=== PATIENT | male | born 1960 | race Caucasian/White ===

== ENCOUNTER 2016-09-28 12:42 | Inpatient (IN) ==
[2016-09-28] MEDS ORDERED: Ondansetron 4 MG/2 ML VIAL IV ONE ×3 (13:18→16:12)
[2016-09-28] MEDS ORDERED: *HR* HYDROmorphone (PF) 1 MG/ML SYRINGE IV ONE ×3 (13:18→16:12)
--- NOTE | 2016-09-28 13:18 | Emergency Department Note ---
Disposition Clinical Impression: Biliary colic, Intractable abdominal pain Disposition: Admitted As Inpatient Referrals: Luther Starks MD [Primary Care Provider] - Forms: Work/School Release, ED Satisfaction Letter Abdominal Pain HPI - General Chief Complaint: ED Abdominal Pain Stated Complaint: Needs admitted Time Seen by Provider: 09/28/16 12:49 Source: patient, family Mode of arrival: ambulatory Limitations: no limitations Nursing Notes Reviewed: Yes Vital Signs Reviewed: Yes - History of Present Illness Pt Subjective Complaint: abdominal pain Onset (ago): week(s) (3) Consistency: intermittent, Worsening Location: RUQ Pain Severity: severe Pain Scale: 10 Quality: stabbing, sharp Radiation: none Migration to: no migration Improves with: nothing Worsens with: eating Associated symptoms: Reports: nausea, vomiting - Related Data Home Medications Medication Instructions Recorded Confirmed Alprazolam [Xanax] 2 mg PO TID PRN 09/28/16 09/28/16 Cyclobenzaprine [Flexeril] 10 mg PO TID PRN 09/28/16 09/28/16 Dicyclomine [Bentyl] 20 mg PO TID PRN 09/28/16 09/28/16 Ergocalciferol (VITAMIN D2) 50,000 unit PO QWEEK 09/28/16 09/28/16 [Vitamin D2] Lisinopril [Zestril] 40 mg PO DAILY 09/28/16 09/28/16 Metoprolol XL (24 HR) Succ [Toprol 50 mg PO DAILY 09/28/16 09/28/16 XL] Omeprazole [PriLOSEC] 20 mg PO BIDAC 09/28/16 09/28/16 Ondansetron ODT [Zofran ODT] 4 - 8 mg SL Q6H PRN 09/28/16 09/28/16 Oxycodone HCl/Acetaminophen 0.5 - 1 each PO TID PRN 09/28/16 09/28/16 [Percocet 10-325 mg Tablet] Zolpidem [Ambien] 10 mg PO HS PRN 09/28/16 09/28/16 Allergies Allergy/AdvReac Type Severity Reaction Status Date / Time Sulfa (Sulfonamide Allergy Vomiting Verified 01/11/16 00:54 Antibiotics) Gxqqrhh-[id number]-[id number] Reductase AdvReac Muscle Pain Verified 01/11/16 00:54 Inhibitor [Statins] All systems ED: reviewed and negative except as stated. Constitutional: Denies: fever, chills, weakness Cardiovascular: Denies: chest pain Gastrointestinal: Reports: nausea, vomiting Abdominal Pain PMH - Past Medical History Medical history: Reports: GERD, hyperlipidemia, hypertension, kidney stones Male Surgical History: Reports: ureteral stent, other Psychiatric history: Reports: anxiety - Social History Smoking status: Current every day smoker Alcohol use: Reports: none Drug use: Reports: none Physical Exam - General Limitations: no limitations General appearance: alert - Head Head exam: atraumatic, normocephalic, normal inspection - Eye Eye exam: Present: normal appearance, PERRL, EOMI - Expanded Eye Exam Pupils: Left: reactive - ENT ENT exam: normal exam, normal oropharynx, mucous membranes moist - Expanded ENT Exam External ear exam: Present: normal external inspection Mouth exam: Present: normal external inspection Teeth exam: Present: normal inspection Throat exam: Present: normal inspection - Neck Neck exam: Present: normal inspection, full ROM, trachea midline - Chest Chest inspection: Present: normal inspection, symmetric chest wall rise - Respiratory Respiratory exam: Present: normal lung sounds bilaterally - Cardiovascular Cardiovascular exam: Present: regular rate, normal rhythm, normal heart sounds - Abdominal Exam Abdominal exam: Present: guarding, normal bowel sounds Abdominal tenderness: Present: RUQ, severe - Extremities Exam Extremities exam: Present: normal inspection, full ROM. Absent: tenderness, pedal edema - Expanded Upper Extremity Exam Shoulder exam: Present: normal inspection, full ROM Arm exam: Present: normal inspection, full ROM Elbow exam: Present: normal inspection, full ROM Forearm/Wrist exam: Present: normal inspection, full ROM Hand exam: Present: normal inspection, full ROM Vascular exam: Normal: capillary refill, radial pulse - Expanded Lower Extremity Exam Hip/Pelvis exam: Present: normal inspection, full ROM Upper leg exam: Present: normal inspection, full ROM Knee exam: Present: normal inspection, full ROM Lower leg exam: Present: normal inspection, full ROM Ankle exam: Present: normal inspection, full ROM Foot/toe exam: Present: normal inspection, full ROM Neurovascular/Tendon exam: Absent: motor deficit, sensory deficit, tendon deficit - Back Exam Back exam: Present: normal inspection, full ROM. Absent: tenderness - Neurological Exam Neurological exam: Present: alert, oriented X3 - Expanded Neurological Exam Patient oriented to: Present: person, place, time Coma Scale Eye Opening: Spontaneous Coma Scale Motor Response: Obeys Commands Coma Scale Verbal Response: Oriented Coma Scale Total: 15 - Psychiatric Psychiatric exam: Present: normal affect, normal mood - Skin Skin exam: Present: warm, dry, intact, normal color Course - Consultations Consultation #1: dr. galvez consulted, Nataly Gouldgomery accepts under the hospitalist service Time: 16:39 Vital Signs Temperature 98.2 F 09/28/16 12:43 Pulse Rate 95 09/28/16 12:43 Respiratory Rate 18 09/28/16 12:43 Blood Pressure 173/122 09/28/16 12:43 O2 Sat by Pulse Oximetry 96 09/28/16 12:43 Temperature 98.2 F 09/28/16 12:45 Pulse Rate 68 09/28/16 14:33 Respiratory Rate 15 09/28/16 13:23 Blood Pressure 159/90 09/28/16 14:33 O2 Sat by Pulse Oximetry 96 09/28/16 14:33 Oxygen Delivery Oxygen Delivery Room Air Abdominal Pain - Differential Diagnosis Differential Diagnosis: Likely: abdominal pain non-specific, acute appendicitis , calculus of kidney, diverticulitis, gastroenteritis, pancreatitis, small bowel obstruction - Medical Records Medical records reviewed: Yes I reviewed the patient's medical records. - Lab Data Lab results reviewed: Yes I reviewed the patient's lab results. Result diagrams: 09/28/16 13:27 09/28/16 13:27 Lab Results 09/28/16 09/28/16 09/28/16 Range/Units 13:00 13:27 13:27 WBC 8.2 (4.3-11.1) K/mcL RBC 5.57 H (4.19-5.50) M/mcL Hgb 16.7 (12.9-16.9) g/dL Hct 48.6 (37.5-50.1) % MCV 87.3 (83.0-100.0) fL MCH 30.0 (28.0-33.3) pg MCHC 34.4 (31.6-35.5) g/dL RDW 12.2 (11.5-14.5) % Plt Count 200 (140-400) K/mcL MPV 9.8 (9.4-12.4) fL Immature Gran % 0.4 (0-4) % Seg Neutrophils % 69.9 % Lymphocytes % 22.3 % Monocytes % 6.2 % Eosinophils % 0.6 % Basophils % 0.6 % Neutrophils # 5.7 (1.6-8.9) K/mcL Lymphocytes # 1.8 (0.6-4.6) K/mcL Monocytes # 0.5 (0.0-1.3) K/mcL Eosinophils # 0.1 (0.0-0.6) K/mcL Basophils # 0.1 (0.0-0.2) K/mcL PT 12.5 H (9.4-12.1) Seconds INR 1.2 APTT 30.9 (26.0-36.0) Seconds Sodium (136-145) mEq/L Potassium (3.5-4.5) mEq/L Chloride (98-109) mEq/L Carbon Dioxide (19-29) mEq/L BUN (8-26) mg/dL Creatinine (0.72-1.25) mg/dL Est GFR ( Amer) (> 60) Est GFR (Non-Af Amer) (> 60) BUN/Creatinine Ratio (6-26) Glucose (70-99) mg/dL Calculated Osmolality (280-300) Calcium (8.6-10.8) mg/dL Total Bilirubin (0.2-1.2) mg/dL Direct Bilirubin (0.0-0.5) mg/dL Indirect Bilirubin (0.0-1.2) mg/dL AST (5-34) Units/L ALT (0-55) Units/L Alkaline Phosphatase (38-126) Units/L Troponin I (0-0.03) ng/mL Serum Total Protein (6.0-8.3) g/dL Albumin (3.5-5.0) g/dL Globulin (2.4-3.5) g/dL Albumin/Globulin Ratio (1.1-2.2) Amylase (25-125) Units/L Lipase (8-78) Units/L Urine Color Dark Yellow (Yellow) Urine Clarity Clear (Clear) Urine pH 6.0 (5.0-8.0) pH Units Ur Specific [place] > 1.030 H (1.010-1.025) Urine Protein Trace (Neg-Trace) mg/dL Urine Glucose (UA) Normal (Normal) mg/dL Urine Ketones 15 H (Negative) mg/dL Urine Blood Negative (Negative) Urine Nitrite Negative (Negative) Urine Bilirubin Small H (Negative) Urine Urobilinogen Normal (Normal) mg/dL Ur Leukocyte Esterase Negative (Negative) Urine Microscopic RBC 0-3 (0-3) per hpf Urine Microscopic WBC 3-5 H (0-3) per hpf Ur Squamous Epith Cells Moderate H (None-Few) per lpf Urine Bacteria None Seen (None-Few) per hpf Hyaline Casts None Seen (None-Few) per lpf Ur Culture Indicated? NO (NO) 09/28/16 09/28/16 Range/Units 13:27 13:27 WBC (4.3-11.1) K/mcL RBC (4.19-5.50) M/mcL Hgb (12.9-16.9) g/dL Hct (37.5-50.1) % MCV (83.0-100.0) fL MCH (28.0-33.3) pg MCHC (31.6-35.5) g/dL RDW (11.5-14.5) % Plt Count (140-400) K/mcL MPV (9.4-12.4) fL Immature Gran % (0-4) % Seg Neutrophils % % Lymphocytes % % Monocytes % % Eosinophils % % Basophils % % Neutrophils # (1.6-8.9) K/mcL Lymphocytes # (0.6-4.6) K/mcL Monocytes # (0.0-1.3) K/mcL Eosinophils # (0.0-0.6) K/mcL Basophils # (0.0-0.2) K/mcL PT (9.4-12.1) Seconds INR APTT (26.0-36.0) Seconds Sodium 138 (136-145) mEq/L Potassium 4.1 (3.5-4.5) mEq/L Chloride 108 (98-109) mEq/L Carbon Dioxide 21 (19-29) mEq/L BUN 14 (8-26) mg/dL Creatinine 0.94 (0.72-1.25) mg/dL Est GFR ( Amer) > 60 (> 60) Est GFR (Non-Af Amer) > 60 (> 60) BUN/Creatinine Ratio 15 (6-26) Glucose 140 H (70-99) mg/dL Calculated Osmolality 289 (280-300) Calcium 9.4 (8.6-10.8) mg/dL Total Bilirubin 0.7 (0.2-1.2) mg/dL Direct Bilirubin 0.3 (0.0-0.5) mg/dL Indirect Bilirubin 0.4 (0.0-1.2) mg/dL AST 26 (5-34) Units/L ALT 31 (0-55) Units/L Alkaline Phosphatase 61 (38-126) Units/L Troponin I 0.00 (0-0.03) ng/mL Serum Total Protein 7.7 (6.0-8.3) g/dL Albumin 4.2 (3.5-5.0) g/dL Globulin 3.5 (2.4-3.5) g/dL Albumin/Globulin Ratio 1.2 (1.1-2.2) Amylase 165 H (25-125) Units/L Lipase 20 (8-78) Units/L Urine Color (Yellow) Urine Clarity (Clear) Urine pH (5.0-8.0) pH Units Ur Specific [place] (1.010-1.025) Urine Protein (Neg-Trace) mg/dL Urine Glucose (UA) (Normal) mg/dL Urine Ketones (Negative) mg/dL Urine Blood (Negative) Urine Nitrite (Negative) Urine Bilirubin (Negative) Urine Urobilinogen (Normal) mg/dL Ur Leukocyte Esterase (Negative) Urine Microscopic RBC (0-3) per hpf Urine Microscopic WBC (0-3) per hpf Ur Squamous Epith Cells (None-Few) per lpf Urine Bacteria (None-Few) per hpf Hyaline Casts (None-Few) per lpf Ur Culture Indicated? (NO) - Radiology Data Radiology results reviewed: Yes I reviewed the patient's radiology results.
[2016-09-28] MEDS: 0.9 % Sodium Chloride 1,000 ML IVC SCH ×2 (13:33→14:30)
[2016-09-28 13:34] LABS: Basophils # 0.1 K/mcL (0.0-0.2); Basophils % 0.6 %; Eosinophils # 0.1 K/mcL (0.0-0.6); Eosinophils % 0.6 %; Hematocrit 48.6 % (37.5-50.1); Hemoglobin 16.7 g/dL (12.9-16.9); Immature Granulocytes % 0.4 % (0-4); Lymphocytes # 1.8 K/mcL (0.6-4.6); Lymphocytes % 22.3 %; Mean Corpuscular HGB Conc 34.4 g/dL (31.6-35.5); Mean Corpuscular Volume 87.3 fL (83.0-100.0); Mean Platelet Volume 9.8 fL (9.4-12.4); Monocytes # 0.5 K/mcL (0.0-1.3); Monocytes % 6.2 %; Neutrophils # 5.7 K/mcL (1.6-8.9); Platelet Count 200 K/mcL (140-400); Red Blood Count 5.57 M/mcL (4.19-5.50); Red Cell Distribution Width 12.2 % (11.5-14.5); Segmented Neutrophils % 69.9 %
[2016-09-28 13:39] LABS: INR 1.2; Prothrombin Time 12.5 Seconds (9.4-12.1)
[2016-09-28 13:39] LABS: Bilirubin,Urine Small (Negative); Blood,Urine Negative (Negative); Clarity,Urine Clear (Clear); Color,Urine Dark Yellow (Yellow); Glucose,Urine (UA) Normal (Normal); Ketones,Urine 15 mg/dL (Negative); Leukocyte Esterase,Urine Negative (Negative); Nitrite,Urine Negative (Negative); Protein,Urine Trace mg/dL (Neg-Trace); Specific Gravity,Urine > 1.030 (1.010-1.025); Urobilinogen,Urine Normal (Normal)
[2016-09-28 13:42] LABS: Activated Partial Thrombo Time 30.9 Seconds (26.0-36.0)
[2016-09-28 13:43] LABS: Bacteria,Urine None Seen per hpf (None-Few); Hyaline Casts,Urine None Seen per lpf (None-Few); RBC,Urine 0-3 per hpf (0-3); Squamous Epithelial Cell,Urine Moderate per lpf (None-Few)
[2016-09-28 13:50] LABS: Alanine Aminotransferase 31 Units/L (0-55); Albumin 4.2 g/dL (3.5-5.0); Albumin/Globulin Ratio 1.2 (1.1-2.2); Alkaline Phosphatase 61 Units/L (38-126); Amylase 165 Units/L (25-125); Aspartate Amino Transferase 26 Units/L (5-34); BUN/Creatinine Ratio 15 (6-26); Bilirubin,Direct 0.3 mg/dL (0.0-0.5); Bilirubin,Indirect 0.4 mg/dL (0.0-1.2); Bilirubin,Total 0.7 mg/dL (0.2-1.2); Blood Urea Nitrogen 14 mg/dL (8-26); Calcium 9.4 mg/dL (8.6-10.8); Carbon Dioxide 21 mEq/L (19-29); Chloride 108 mEq/L (98-109); Globulin 3.5 g/dL (2.4-3.5); Glucose 140 mg/dL (70-99); Lipase 20 Units/L (8-78); Osmolality,Calculated 289 (280-300); Potassium 4.1 mEq/L (3.5-4.5); Sodium 138 mEq/L (136-145); Total Protein 7.7 g/dL (6.0-8.3); eGFR For African Americans > 60 (> 60); eGFR For Non-African Americans > 60 (> 60)
[2016-09-28] MEDS ORDERED: *HR* Promethazine 25 MG/ML VIAL IVP ONE (16:33)
[2016-09-28] MEDS ORDERED: Ondansetron ODT 4 MG TAB.RAPDIS SL PRN (16:49)
[2016-09-28] MEDS ORDERED: Naloxone 0.4 MG/ML INJ IVP PRN (16:49)
[2016-09-28] MEDS ORDERED: *HR* HYDROmorphone (PF) 1 MG/ML SYRINGE IVP ONE (17:00)
[2016-09-28] MEDS ORDERED: ALPRAZolam 1 MG TABLET PO PRN (19:48)
--- NOTE | 2016-09-28 19:55 | Internal Med History&Physical ---
<Nataly Sargent - Last Filed: 09/28/16 19:53> Date of Encounter: 09/28/16 Time of Encounter: 19:53 Assessment and Plan (1) Biliary colic Current visit: Yes Status: Acute recurrent for 3 weeks prior to admission. Has had extensive work-up including negative HIDA scan. ED discussed case with General Surgery and plan for chloecystectomy in the morning. IV fluids, pain control (2) Hypertension Current visit: Yes Status: Acute per hx. BP elevated in ED. resume home BP medications. Monitor BP and titrate PRN Qualifiers: Qualified Code(s): I10 - Essential (primary) hypertension (3) DVT prophylaxis Current visit: Yes [facility] Medicine - H&P: HPI Chief complaint: abdomianl pain Admitted From: Home History of present illness: Mr. Rivera is a 55 year old male with PMH HTN and anxiety who presented to [facility] on 09/28/2016 with complaints of abdominal pain. ED discussed case with General Surgery and He was admitted for cholecystectomy in the morning. Information obtained from chart review and patient report. Patient reports intermittent ABD pain for the past 3 weeks. Has had extensive work-up including a negative HIDA scan. On my exam he is still with sharp, constant LUQ pain, rates 4/10, says IV dilaudid helped, nothing makes worse. No CP, no SOB Past Med Surg Social Fam HX - Past Medical History Medical history: GERD, hyperlipidemia, hypertension, kidney stones Psychiatric history: anxiety - Past Surgical History Surgical History: no surgical history, non-contributory - Social History Smoking Status: Current every day smoker Smokeless Tobacco Status: No Alcohol use: none Drug use: none - Additional Family History Additional family history: reviewed and non-contributory Internal Medicine - H&P: Meds Alprazolam [Xanax] 2 mg PO TID PRN 09/28/16 [History] Cyclobenzaprine [Flexeril] 10 mg PO TID PRN 09/28/16 [History] Dicyclomine [Bentyl] 20 mg PO TID PRN 09/28/16 [History] Ergocalciferol (VITAMIN D2) [Vitamin D2] 50,000 unit PO QWEEK 09/28/16 [History] Lisinopril [Zestril] 40 mg PO DAILY 09/28/16 [History] Metoprolol XL (24 HR) Succ [Toprol XL] 50 mg PO DAILY 09/28/16 [History] Omeprazole [PriLOSEC] 20 mg PO BIDAC 09/28/16 [History] Ondansetron ODT [Zofran ODT] 4 - 8 mg SL Q6H PRN 09/28/16 [History] Oxycodone HCl/Acetaminophen [Percocet 10-325 mg Tablet] 0.5 - 1 each PO TID PRN 09/28/16 [History] Zolpidem [Ambien] 10 mg PO HS PRN 09/28/16 [History] Allergies Sulfa (Sulfonamide Antibiotics) Allergy (Verified 01/11/16 00:54) Vomiting Ntjzamr-Bwh-Ojl Reductase Inhibitor [Statins] Adverse Reaction (Verified 00:54) Muscle Pain All Systems PM: A 10-system review of systems was performed and is negative for pertinent findings except as documented above in the HPI. - Constitutional Constitutional: no chills, no fever(s), no night sweats - EENT Eyes: no change in vision, no discharge, no pain, no photophobia Ears: no ear discharge, no ear pain, no tinnitus Nose, mouth and throat: no dysphagia, no nasal discharge, no neck pain, no sore throat - Cardiovascular Cardiovascular ROS IM: no chest pain, no diaphoresis, no dyspnea, no lightheadedness, no palpitations, no syncope - Respiratory Respiratory: no cough, no dyspnea, no wheezing, no excessive phlegm production - Gastrointestinal Gastrointestinal: abdominal pain, no diarrhea, no hematemesis, no hematochezia, no melena, no nausea, no vomiting - Musculoskeletal Musculoskeletal ROS IM: no numbness, no tingling - Integumentary Integumentary IM: no rash, no unusual bruising - Neurological Neurological ROS: no confusion, no convulsions, no focal weakness, no numbness, no tingling, no tremor(s) - Hematologic/Lymphatic Hematologic/Lymphatic: no easy bruising - Constitutional Vitals: Temp Pulse Resp BP Pulse Ox 97.8 F 69 18 143/97 96 09/28/16 18:07 09/28/16 18:07 09/28/16 18:07 09/28/16 18:07 09/28/16 18:07 - Head Head exam: Present: atraumatic, normocephalic - Eye Eye exam: Present: PERRL, conjuntiva pink, sclera anicteric Pupils: Present: PERRL - Neck Neck exam general surgery: Present: supple, trachea midline. Absent: lymphadenopathy - Respiratory Respiratory exam: Present: CTAB. Absent: accessory muscle use, rales, rhonchi, wheezes - Cardiovascular Cardiovascular exam: Present: RRR, +S1, +S2. Absent: diastolic murmur, gallop, rubs, systolic murmur - GI/Abdominal GI/Abdominal exam: Present: normal bowel sounds, soft, tenderness, no peritoneal signs. Absent: distended - Extremities Exam Extremities exam: Present: warm, radial pulses palpable and symetrical. Absent : calf tenderness, cyanotic, pedal edema - Neurological Exam Neurological exam: Present: CN II-XII intact, oriented X3, no focal deficits. Absent: pronater drift, facial droop, speech deficit - Skin Skin exam: Present: dry, intact Internal Med - H&P Results - Labs CBC & Chem 7: 09/28/16 13:27 09/28/16 13:27 <ReaRomero Hartmann - Last Filed: 09/29/16 10:15> Date of Encounter: 09/28/16 Internal Medicine - H&P: HPI Admitted From: Emergency Dept Plans for Post Hospital Care: Home History of present illness: Mr. Rivera is a 55 year old male I examined this patient and my medical decision-making was reviewed with the Advanced Practice Nurse, Ms. Nataly Sargent. For this encounter, I have reviewed the MEDICARE CONTACT SPECIALIST documentation, treatment plan, and medical decision making. I have had face to face time with this patient. I agree with the documented findings, disposition and treatment plan as described except to the extent set forth below. Past Med Surg Social Fam HX - Past Medical History Source: old records reviewed Medical history: arthritis, GERD, GI bleed (Colonic diverticulosis), hyperlipidemia, hypertension, kidney stones, osteoporosis (Vit D def.), other ( Irritable bowel syndrome. Chr MSK pain syndrome. Sciatica.) Psychiatric history: anxiety, other - Past Surgical History Surgical History: ureteral stent, other - Social History Smoking Status: Current every day smoker Alcohol use: none, unknown Drug use: none, unknown Occupational status: employed Current living situation: Home, With Family Activity Level: Independent ambulation, Mostly sedentary Recent Out of Country Travel Within the Last 8 Weeks: No Exposure or Possible Exposure to Illness During Travel: No All Systems PM: A 10-system review of systems was performed and is negative for pertinent findings except as documented above in the HPI. - Constitutional Constitutional: as per HPI - EENT Eyes: as per HPI Ears: as per HPI Nose, mouth and throat: as per HPI - Cardiovascular Cardiovascular ROS IM: as per HPI - Respiratory Respiratory: as per HPI - Gastrointestinal Gastrointestinal: as per HPI - Genitourinary Genitourinary ROS male: as per HPI - Musculoskeletal Musculoskeletal ROS IM: as per HPI - Integumentary Integumentary IM: as per HPI - Neurological Neurological ROS: as per HPI - Psychiatric Psychiatric: as per HPI - Endocrine Endocrine IM: as per HPI - Hematologic/Lymphatic Hematologic/Lymphatic: as per HPI - Allergic/Immunologic Allergic/Immunologic: as per HPI - Constitutional Vitals: Temp Pulse Resp BP Pulse Ox 97.8 F 55 16 115/75 94 09/29/16 07:29 09/29/16 07:29 09/29/16 07:29 09/29/16 07:29 09/29/16 09:30 Vital Signs Temp Pulse Resp BP Pulse Ox 09/29/16 09:30 94 09/29/16 07:29 97.8 F 55 16 115/75 94 09/29/16 03:59 97.6 F 56 14 107/69 97 09/28/16 22:25 97.6 F 62 16 133/85 96 09/28/16 18:07 97.8 F 69 18 143/97 96 09/28/16 17:30 18 160/93 09/28/16 14:33 68 159/90 96 09/28/16 13:23 75 15 165/110 94 09/28/16 12:45 98.2 F 80 18 173/122 97 09/28/16 12:43 98.2 F 95 18 173/122 96 Intake and Output 09/28/16 09/29/16 09/29/16 23:59 07:59 15:59 Intake Total 360 / 360 1000 / 1000 Output Total 300 / 300 Balance 360 / 360 700 / 700 Intake: IV Fluids 1000 / 1000 Lactated Ringers 1,000 ML 1000 / 1000 @ 125 mls/hr IVC .Q8H BISHNU Rx#:[id number] Oral 360 / 360 Output: Urine 300 / 300 Other: Meal Dinner Percent of Meal Consumed 90% Weight 124.012 kg Blood Glucose* 90 Patient Weight 09/29/16 23:59 Weight 124.012 kg Internal Med - H&P Results - Labs CBC & Chem 7: 09/29/16 05:47 09/29/16 05:47 Labs: Short CBC 09/29/16 Range/Units 05:47 WBC 7.6 (4.3-11.1) K/mcL Hgb 14.7 D (12.9-16.9) g/dL Hct 43.2 (37.5-50.1) % Plt Count 175 (140-400) K/mcL Neutrophils # 3.3 (1.6-8.9) K/mcL BMP 09/29/16 05:47 Sodium 140 Potassium 4.1 Chloride 110 H Carbon Dioxide 23 BUN 12 Creatinine 0.90 Glucose 81 Calcium 8.8 Liver Function 09/29/16 Range/Units 05:47 Total Bilirubin 0.8 (0.2-1.2) mg/dL AST 22 (5-34) Units/L ALT 24 (0-55) Units/L Alkaline Phosphatase 54 (38-126) Units/L Albumin 3.3 L D (3.5-5.0) g/dL Abnormal lab results PT 12.5 Seconds (9.4-12.1) H 09/28/16 13:27 Chloride 110 mEq/L (98-109) H 09/29/16 05:47 POC Glucose 90 (58-89) H 09/29/16 08:06 Albumin 3.3 g/dL (3.5-5.0) L D 09/29/16 05:47 Amylase 165 Units/L (25-125) H 09/28/16 13:27 Ur Specific [place] > 1.030 (1.010-1.025) H 09/28/16 13:00 Urine Ketones 15 mg/dL (Negative) H 09/28/16 13:00 Urine Bilirubin Small (Negative) H 09/28/16 13:00 Urine Microscopic WBC 3-5 per hpf (0-3) H 09/28/16 13:00 Ur Squamous Epith Cells Moderate per lpf (None-Few) H 09/28/16 13:00 Urine Opiates Screen Positive ng/mL (Fcdmbn=155) H 09/29/16 07:30 U Benzodiazepines Scrn Positive ng/mL (Rebazf=313) H 09/29/16 07:30 U Marijuana (THC) Screen Positive ng/mL (Cutoff = 50) H 09/29/16 07:30 Laboratory Last Values WBC 7.6 K/mcL (4.3-11.1) 09/29/16 05:47 RBC 4.87 M/mcL (4.19-5.50) 09/29/16 05:47 Hgb 14.7 g/dL (12.9-16.9) D 09/29/16 05:47 Hct 43.2 % (37.5-50.1) 09/29/16 05:47 MCV 88.7 fL (83.0-100.0) 09/29/16 05:47 MCH 30.2 pg (28.0-33.3) 09/29/16 05:47 MCHC 34.0 g/dL (31.6-35.5) 09/29/16 05:47 RDW 12.2 % (11.5-14.5) 09/29/16 05:47 Plt Count 175 K/mcL (140-400) 09/29/16 05:47 MPV 9.8 fL (9.4-12.4) 09/29/16 05:47 Immature Gran % 0.5 % (0-4) 09/29/16 05:47 Seg Neutrophils % 43.8 % 09/29/16 05:47 Lymphocytes % 43.4 % 09/29/16 05:47 Monocytes % 8.1 % 09/29/16 05:47 Eosinophils % 3.4 % 09/29/16 05:47 Basophils % 0.8 % 09/29/16 05:47 Neutrophils # 3.3 K/mcL (1.6-8.9) 09/29/16 05:47 Lymphocytes # 3.3 K/mcL (0.6-4.6) 09/29/16 05:47 Monocytes # 0.6 K/mcL (0.0-1.3) 09/29/16 05:47 Eosinophils # 0.3 K/mcL (0.0-0.6) 09/29/16 05:47 Basophils # 0.1 K/mcL (0.0-0.2) 09/29/16 05:47 ESR 5 mm/hr (0-10) 09/28/16 21:34 PT 12.5 Seconds (9.4-12.1) H 09/28/16 13:27 INR 1.2 09/28/16 13:27 APTT 30.9 Seconds (26.0-36.0) 09/28/16 13:27 Sodium 140 mEq/L (136-145) 09/29/16 05:47 Potassium 4.1 mEq/L (3.5-4.5) 09/29/16 05:47 Chloride 110 mEq/L (98-109) H 09/29/16 05:47 Carbon Dioxide 23 mEq/L (19-29) 09/29/16 05:47 BUN 12 mg/dL (8-26) 09/29/16 05:47 Creatinine 0.90 mg/dL (0.72-1.25) 09/29/16 05:47 Est GFR ( Amer) > 60 (> 60) 09/29/16 05:47 Est GFR (Non-Af Amer) > 60 (> 60) 09/29/16 05:47 BUN/Creatinine Ratio 13 (6-26) 09/29/16 05:47 Glucose 81 mg/dL (70-99) 09/29/16 05:47 POC Glucose 90 (58-89) H 09/29/16 08:06 Est Mean Plasma Glucose 108 mg/dl 09/28/16 21:34 Hemoglobin A1c 5.4 % (-5.6) 09/28/16 21:34 Calculated Osmolality 289 (280-300) 09/29/16 05:47 Lactic Acid 0.6 mmol/L (0.5-2.2) 09/28/16 21:34 Calcium 8.8 mg/dL (8.6-10.8) 09/29/16 05:47 Total Bilirubin 0.8 mg/dL (0.2-1.2) 09/29/16 05:47 Direct Bilirubin 0.3 mg/dL (0.0-0.5) 09/28/16 13:27 Indirect Bilirubin 0.4 mg/dL (0.0-1.2) 09/28/16 13:27 AST 22 Units/L (5-34) 09/29/16 05:47 ALT 24 Units/L (0-55) 09/29/16 05:47 Alkaline Phosphatase 54 Units/L (38-126) 09/29/16 05:47 Troponin I 0.00 ng/mL (0-0.03) 09/28/16 13:27 C-Reactive Protein 1 mg/L (Less than 5) 09/28/16 21:34 Serum Total Protein 6.1 g/dL (6.0-8.3) D 09/29/16 05:47 Albumin 3.3 g/dL (3.5-5.0) L D 09/29/16 05:47 Globulin 2.8 g/dL (2.4-3.5) 09/29/16 05:47 Albumin/Globulin Ratio 1.2 (1.1-2.2) 09/29/16 05:47 Amylase 165 Units/L (25-125) H 09/28/16 13:27 Lipase 20 Units/L (8-78) 09/28/16 13:27 Urine Color Dark Yellow (Yellow) 09/28/16 13:00 Urine Clarity Clear (Clear) 09/28/16 13:00 Urine pH 6.0 pH Units (5.0-8.0) 09/28/16 13:00 Ur Specific [place] > 1.030 (1.010-1.025) H 09/28/16 13:00 Urine Protein Trace mg/dL (Neg-Trace) 09/28/16 13:00 Urine Glucose (UA) Normal mg/dL (Normal) 09/28/16 13:00 Urine Ketones 15 mg/dL (Negative) H 09/28/16 13:00 Urine Blood Negative (Negative) 09/28/16 13:00 Urine Nitrite Negative (Negative) 09/28/16 13:00 Urine Bilirubin Small (Negative) H 09/28/16 13:00 Urine Urobilinogen Normal mg/dL (Normal) 09/28/16 13:00 Ur Leukocyte Esterase Negative (Negative) 09/28/16 13:00 Urine Microscopic RBC 0-3 per hpf (0-3) 09/28/16 13:00 Urine Microscopic WBC 3-5 per hpf (0-3) H 09/28/16 13:00 Ur Squamous Epith Cells Moderate per lpf (None-Few) H 09/28/16 13:00 Urine Bacteria None Seen per hpf (None-Few) 09/28/16 13:00 Hyaline Casts None Seen per lpf (None-Few) 09/28/16 13:00 Ur Culture Indicated? NO (NO) 09/28/16 13:00 Urine Opiates Screen Positive ng/mL (Isvfwz=254) H 09/29/16 07:30 Ur Barbiturates Screen Negative ng/mL (Fxrrbp=502) 09/29/16 07:30 Ur Phencyclidine Scrn Negative ng/mL (Cutoff=25) 09/29/16 07:30 Ur Amphetamines Screen Negative ng/mL (Gunijb=2103) 09/29/16 07:30 U Benzodiazepines Scrn Positive ng/mL (Pmcjbd=494) H 09/29/16 07:30 Urine Cocaine Screen Negative ng/mL (Cutoff= 300) 09/29/16 07:30 U Marijuana (THC) Screen Positive ng/mL (Cutoff = 50) H 09/29/16 07:30 Hep Bs Antigen Nonreactive (Nonreactive) 09/28/16 21:34 - Impressions Abdomen/Pelvis CT 09/28/16 13:43 IMPRESSION: 1. There is a nonobstructing stone noted in the lower pole of the left kidney measuring approximately 1 mm. 2. Colonic diverticulosis. 3. No acute findings in the abdomen or pelvis to account for the patient's right flank pain. D/ / 09/28/2016 15:54:26 Davdi Johnson MD / jenny Interpreting Provider: David Johnson MD - Attending Attestation My signature below is to certify that this patient is under my care and that I, or the Nurse Practitioner working with me, has had a [id number] encounter with this patient.
[2016-09-28] MEDS: *HR* Morphine 2 MG/ML SYRINGE IVP PRN (20:02)
[2016-09-28] MEDS ORDERED: Lisinopril 20 MG TABLET PO SCH (20:20)
[2016-09-28] MEDS ORDERED: Metoprolol XL (24 HR) Succ 50 MG TAB.ER.24H PO SCH (20:21)
[2016-09-28] MEDS ORDERED: Pantoprazole 40 MG VIAL IVP SCH (20:22)
[2016-09-28] MEDS: Metoprolol XL (24 HR) Succ 50 MG TAB.ER.24H PO SCH (21:37)
[2016-09-28] MEDS: Lisinopril 20 MG TABLET PO SCH (21:38)
[2016-09-28] MEDS: Pantoprazole 40 MG VIAL IVP SCH (21:38)
[2016-09-28] MEDS: Ringers Solution, Lactated 1,000 ML IVC SCH (21:47)
[2016-09-28 21:54] LABS: Hemoglobin A1C 5.4 %
[2016-09-28 22:17] LABS: Hepatitis B Surface Antigen Nonreactive (Nonreactive)
[2016-09-29] MEDS: *HR* Morphine 2 MG/ML SYRINGE IVP PRN ×3 (00:54→09:37)
[2016-09-29] MEDS: Ringers Solution, Lactated 1,000 ML IVC SCH ×3 (05:30→22:58)
[2016-09-29] MEDS: Ondansetron 4 MG/2 ML VIAL IVP PRN ×2 (05:30→11:41)
[2016-09-29 06:15] LABS: Basophils # 0.1 K/mcL (0.0-0.2); Basophils % 0.8 %; Eosinophils # 0.3 K/mcL (0.0-0.6); Eosinophils % 3.4 %; Hematocrit 43.2 % (37.5-50.1); Immature Granulocytes % 0.5 % (0-4); Lymphocytes # 3.3 K/mcL (0.6-4.6); Lymphocytes % 43.4 %; Mean Corpuscular Hemoglobin 30.2 pg (28.0-33.3); Mean Corpuscular Volume 88.7 fL (83.0-100.0); Mean Platelet Volume 9.8 fL (9.4-12.4); Monocytes # 0.6 K/mcL (0.0-1.3); Monocytes % 8.1 %; Neutrophils # 3.3 K/mcL (1.6-8.9); Platelet Count 175 K/mcL (140-400); Red Blood Count 4.87 M/mcL (4.19-5.50); Red Cell Distribution Width 12.2 % (11.5-14.5); Segmented Neutrophils % 43.8 %
[2016-09-29 06:17] LABS: Hemoglobin 14.7 g/dL (12.9-16.9)
[2016-09-29 06:27] LABS: Alanine Aminotransferase 24 Units/L (0-55); Albumin/Globulin Ratio 1.2 (1.1-2.2); Alkaline Phosphatase 54 Units/L (38-126); Aspartate Amino Transferase 22 Units/L (5-34); BUN/Creatinine Ratio 13 (6-26); Bilirubin,Total 0.8 mg/dL (0.2-1.2); Blood Urea Nitrogen 12 mg/dL (8-26); Calcium 8.8 mg/dL (8.6-10.8); Carbon Dioxide 23 mEq/L (19-29); Chloride 110 mEq/L (98-109); Globulin 2.8 g/dL (2.4-3.5); Glucose 81 mg/dL (70-99); Osmolality,Calculated 289 (280-300); Potassium 4.1 mEq/L (3.5-4.5); Sodium 140 mEq/L (136-145); eGFR For African Americans > 60 (> 60); eGFR For Non-African Americans > 60 (> 60)
[2016-09-29 06:28] LABS: Albumin 3.3 g/dL (3.5-5.0); Total Protein 6.1 g/dL (6.0-8.3)
[2016-09-29] MEDS: Lisinopril 20 MG TABLET PO SCH ×2 (07:43→21:45)
[2016-09-29] MEDS: Metoprolol XL (24 HR) Succ 50 MG TAB.ER.24H PO SCH ×2 (07:43→21:46)
[2016-09-29 08:44] LABS: Amphetamine Screen,Urine Negative ng/mL (Cutoff=1000); Barbiturate Screen,Urine Negative ng/mL (Cutoff=200); Benzodiazepines Screen,Urine Positive ng/mL (Cutoff=200); Cannabinoid Screen,Urine Positive ng/mL (Cutoff = 50); Cocaine Screen,Urine Negative ng/mL (Cutoff= 300); Opiate Screen,Urine Positive ng/mL (Cutoff=300); Phencyclidine Screen,Urine Negative ng/mL (Cutoff=25)
[2016-09-29] MEDS ORDERED: Pantoprazole 40 MG VIAL IVP SCH (09:00)
[2016-09-29] MEDS ORDERED: Lisinopril 20 MG TABLET PO SCH (09:00)
[2016-09-29] MEDS ORDERED: Metoprolol XL (24 HR) Succ 50 MG TAB.ER.24H PO SCH (09:00)
[2016-09-29] MEDS: Pantoprazole 40 MG VIAL IVP SCH ×2 (09:37→21:46)
[2016-09-29] MEDS ORDERED: *HR* OxyCODONE Immed Rel 5 MG TABLET PO PRN (09:52)
[2016-09-29] MEDS ORDERED: *HR* Promethazine 25 MG/ML VIAL IVP PRN ×2 (09:52→15:59)
[2016-09-29] MEDS ORDERED: Acetaminophen 325 MG TABLET PO PRN ×2 (09:52→15:59)
[2016-09-29] MEDS ORDERED: *HR* Morphine 2 MG/ML SYRINGE IVP PRN ×2 (09:58→15:59)
[2016-09-29] MEDS ORDERED: Ipratropium/Albuterol Neb 3 ML IH PRN ×2 (10:02→15:59)
[2016-09-29] MEDS ORDERED: Benzonatate 100 MG CAPSULE PO PRN ×2 (10:02→15:59)
[2016-09-29] MEDS ORDERED: Nicotine 21 MG PATCH.TD24 TD PRN ×2 (10:02→15:59)
[2016-09-29 10:13] LABS: Chol/HDL Ratio 5.7 (0-4.9); Cholesterol 149 mg/dL (< 200); HDL Cholesterol 26 mg/dL (40-59); LDL Cholesterol,Calculated 101 mg/dL (0-99); Magnesium 1.9 mg/dL (1.6-2.6); Phosphorous 3.4 mg/dL (2.3-4.7); Triglycerides 108 mg/dL (< 150)
[2016-09-29 11:13] LABS: Hepatitis A Antibody IgM Nonreactive (Nonreactive); Hepatitis B Core IgM Nonreactive (Nonreactive); Hepatitis C Virus Antibody Nonreactive (Nonreactive)
--- NOTE | 2016-09-29 13:02 | General Surgery Consult Note ---
Date of Encounter: 09/29/16 Time of Encounter: 12:30 Assessment and Plan (1) Biliary colic Current Visit: Yes Status: Acute NPO IV fluids Discussed the risks, benefits, alternatives and expected outcomes with the patient and he is in agreement to proceed with a laparoscopic cholecystectomy with cholangiogram today Supportive care/pain control History of Present Illness Consult date: 09/29/16 Reason for consult: other (RUQ abdominal pain) Requesting physician: Chucky Kothari History of present illness: Mr. Rivera is a very pleasant 55 year old male who presented to the ED with a 3 weeks history of RUQ abdominal pain. He states that the pain feels like a sharp knot in his RUQ quadrant. The pains waxes and waines and seems to be aggrevated by eating fatty foods. He states that he pain has become more intense and more frequent over the past 3 weeks. He states that he cannot eat/drink anything without experiencing nausea. He has had vomiting almost daily over the past 3 weeks. Denies any hematemesis of coffee ground emesis. Admits to increased belching and flatus. Denies any changes in bowel habits. Denies any weight loss. Admits to episodes of diaphoresis with the pain. Denies any fevers. Denies any difficulty with urination. He did have and US of the RUQ which shows no evidence of stones of inflammation. HIDA scan complete and patient denies recreation of symptoms during the test. He did report nausea but states this was present during the entire study. Past Med Surg Social Fam HX - Past Medical History Medical history: arthritis, GERD, GI bleed (Colonic diverticulosis), hyperlipidemia, hypertension, kidney stones, osteoporosis (Vit D def.), other ( Irritable bowel syndrome. Chr MSK pain syndrome. Sciatica. Gastroperesis) Psychiatric history: anxiety, other - Past Surgical History Surgical History: ureteral stent, other (EGD in [address] 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) Current living situation: Home - Independent Activity Level: Independent ambulation Medications and Allergies Alprazolam [Xanax] 2 mg PO TID PRN 09/28/16 [History] Cyclobenzaprine [Flexeril] 10 mg PO TID PRN 09/28/16 [History] Dicyclomine [Bentyl] 20 mg PO TID PRN 09/28/16 [History] Ergocalciferol (VITAMIN D2) [Vitamin D2] 50,000 unit PO QWEEK 09/28/16 [History] Lisinopril [Zestril] 40 mg PO DAILY 09/28/16 [History] Metoprolol XL (24 HR) Succ [Toprol XL] 50 mg PO DAILY 09/28/16 [History] Omeprazole [PriLOSEC] 20 mg PO BIDAC 09/28/16 [History] Ondansetron ODT [Zofran ODT] 4 - 8 mg SL Q6H PRN 09/28/16 [History] Zolpidem [Ambien] 10 mg PO HS PRN 09/28/16 [History] Docusate [Colace] 100 mg PO BID PRN #30 capsule 09/29/16 [Rx] OxyCODONE/APAP 10/325 [Percocet 10/325 MG] 1 each PO Q6HR PRN #30 tablet [Rx] Allergies Sulfa (Sulfonamide Antibiotics) Allergy (Verified 01/11/16 00:54) Vomiting Srxgabg-Nkm-Uok Reductase Inhibitor [Statins] Adverse Reaction (Verified 00:54) Muscle Pain Review of Systems All systems PM: reviewed and no additional remarkable complaints except as stated (in the HPI) All systems PM: A 10-system review of systems was performed and is negative for pertinent findings except as documented above in the HPI. General Surgery Exam Initial Vital Signs Temp Pulse Resp BP Pulse Ox 98.2 F 95 18 173/122 96 09/28/16 12:43 09/28/16 12:43 09/28/16 12:43 09/28/16 12:43 09/28/16 12:43 - General physical appearance well developed, well nourished, moderate pain - Eyes normal ocular movement - ENT normal mucosa, atraumatic, normocephalic - Neck trachea midline - Respiratory normal respiratory effort, clear to auscultation - Cardiovascular Cardiovascular exam: Present: RRR - Abdomen Abdomen general surgery: Present: bowel sounds present, soft, tender Abdominal Tenderness: Present: epigastic, RUQ - Integumentary Integumentary general surgery: Present: warm and dry - Neurologic Present: CN 2-12 grossly intact - Musculoskeletal Present: normal gait, normal posture - Psychiatric Psychiatric general surgery: Present: appropriate, oriented to person, oriented to place, oriented to time, speech is normal, memory intact Exam Initial Vital Signs Temp Pulse Resp BP Pulse Ox 98.2 F 95 18 173/122 96 09/28/16 12:43 09/28/16 12:43 09/28/16 12:43 09/28/16 12:43 09/28/16 12:43 Results - Labs 09/29/16 05:47 09/29/16 05:47 Abnormal lab results PT 12.5 Seconds (9.4-12.1) H 09/28/16 13:27 Chloride 110 mEq/L (98-109) H 09/29/16 05:47 POC Glucose 90 (58-89) H 09/29/16 08:06 Albumin 3.3 g/dL (3.5-5.0) L D 09/29/16 05:47 LDL Cholesterol, Calc 101 mg/dL (0-99) H 09/29/16 05:47 HDL Cholesterol 26 mg/dL (40-59) L 09/29/16 05:47 Cholesterol/HDL Ratio 5.7 (0-4.9) H 09/29/16 05:47 Amylase 165 Units/L (25-125) H 09/28/16 13:27 Ur Specific [place] > 1.030 (1.010-1.025) H 09/28/16 13:00 Urine Ketones 15 mg/dL (Negative) H 09/28/16 13:00 Urine Bilirubin Small (Negative) H 09/28/16 13:00 Urine Microscopic WBC 3-5 per hpf (0-3) H 09/28/16 13:00 Ur Squamous Epith Cells Moderate per lpf (None-Few) H 09/28/16 13:00 Urine Opiates Screen Positive ng/mL (Uvhbpm=456) H 09/29/16 07:30 U Benzodiazepines Scrn Positive ng/mL (Ngumtc=722) H 09/29/16 07:30 U Marijuana (THC) Screen Positive ng/mL (Cutoff = 50) H 09/29/16 07:30 Diabetes panel 09/28/16 09/29/16 Range/Units 21:34 05:47 Sodium 140 (136-145) mEq/L Potassium 4.1 (3.5-4.5) mEq/L Chloride 110 H (98-109) mEq/L Carbon Dioxide 23 (19-29) mEq/L BUN 12 (8-26) mg/dL Creatinine 0.90 (0.72-1.25) mg/dL Glucose 81 (70-99) mg/dL Hemoglobin A1c 5.4 ( - 5.6) % Calcium 8.8 (8.6-10.8) mg/dL AST 22 (5-34) Units/L ALT 24 (0-55) Units/L Alkaline Phosphatase 54 (38-126) Units/L Albumin 3.3 L D (3.5-5.0) g/dL Triglycerides 108 (< 150) mg/dL HDL Cholesterol 26 L (40-59) mg/dL Calcium panel 09/29/16 Range/Units 05:47 Calcium 8.8 (8.6-10.8) mg/dL Phosphorus 3.4 (2.3-4.7) mg/dL Albumin 3.3 L D (3.5-5.0) g/dL Pituitary panel 09/29/16 Range/Units 05:47 Sodium 140 (136-145) mEq/L Potassium 4.1 (3.5-4.5) mEq/L Chloride 110 H (98-109) mEq/L Carbon Dioxide 23 (19-29) mEq/L BUN 12 (8-26) mg/dL Creatinine 0.90 (0.72-1.25) mg/dL Glucose 81 (70-99) mg/dL Calcium 8.8 (8.6-10.8) mg/dL Adrenal panel 09/29/16 Range/Units 05:47 Sodium 140 (136-145) mEq/L Potassium 4.1 (3.5-4.5) mEq/L Chloride 110 H (98-109) mEq/L Carbon Dioxide 23 (19-29) mEq/L BUN 12 (8-26) mg/dL Creatinine 0.90 (0.72-1.25) mg/dL Glucose 81 (70-99) mg/dL Calcium 8.8 (8.6-10.8) mg/dL Total Bilirubin 0.8 (0.2-1.2) mg/dL AST 22 (5-34) Units/L ALT 24 (0-55) Units/L Alkaline Phosphatase 54 (38-126) Units/L Albumin 3.3 L D (3.5-5.0) g/dL All other labs normal. - Imaging US - abdomen: report reviewed Additional studies: HIDA scan reviewed Abdomen/Pelvis CT 09/28/16 13:43 IMPRESSION: 1. There is a nonobstructing stone noted in the lower pole of the left kidney measuring approximately 1 mm. 2. Colonic diverticulosis. 3. No acute findings in the abdomen or pelvis to account for the patient's right flank pain. D/ / 09/28/2016 15:54:26 David Johnson MD / jenny Interpreting Provider: David Johnson MD Consult Discharge Plan - Plan Additional Instructions: Surgical instructions: #1 May shower,09/30/16, no tub bath X 2 weeks #2 Wash incisions with soap and water and pat dry daily #3 No lifting/pushing/pulling greater than 15 lb. for a total of 2 weeks from the date of surgery #4 No driving until off narcotics for 24 hours and able to safely react in the car #5 May climb stairs #6 May advance to regular diet as tolerated (cautious with fatty foods- may cause urgency/diarrhea) May return to work 10/09/16 with no restrictions Referrals: Luther Starks MD [Primary Care Provider] - 10/06/16 3:00 pm Linh Sheth CNP [Advanced Practice Nurse] - 10/12/16 9:45 am (surgery follow-up) Prescriptions: OxyCODONE/APAP 10/325 [Percocet 10/325 MG] 1 each PO Q6HR PRN #30 tablet PRN Reason: Pain Docusate [Colace] 100 mg PO BID PRN #30 capsule PRN Reason: Constipation - Attending Attestation I examined this patient and my medical decision-making was reviewed with the CEMENT PAVER/PA/Advanced Practice Nurse/Resident Physician. I agree with the documented findings, disposition and treatment plan as described except to the extent set forth below.
[2016-09-29] MEDS ORDERED: Ketorolac 30 MG/ML VIAL ONE (13:23)
[2016-09-29] MEDS ORDERED: Lidocaine -MPF 2% 2 ML VIAL ONE (13:23)
[2016-09-29] MEDS ORDERED: *HR* Rocuronium Bromide 50 MG/5 ML VIAL ONE (13:23)
[2016-09-29] MEDS ORDERED: *HR* Midazolam HCl 2 MG/2 ML VIAL ONE (13:23)
[2016-09-29] MEDS ORDERED: *HR* FentaNYL (PF) 100 MCG/2 ML VIAL ONE (13:23)
[2016-09-29] MEDS ORDERED: Ondansetron 4 MG/2 ML VIAL ONE (13:23)
[2016-09-29] MEDS ORDERED: *HR* Propofol 200 MG/20 ML VIAL IVP ONE (13:23)
--- NOTE | 2016-09-29 13:42 | Anesthesia Evaluation PreOp ---
Date of Encounter: 09/29/16 Time of Encounter: 13:43 - Past History Planned Operation: Lap. Roberta Cardiac History: HTN, Hyperlipidemia Pulmonary History: Denies Any Significant HX, Smoker STEAMBOAT PILOT History: Denies Any Significant HX Other Medical History: Renal (Stones), GERD Anesthesia History: No Prior Anesthetic Complications, Past Anesthesia ( Ureteral Stent) Alcohol Use: none, unknown Drug use: none, unknown Medications and Allergies Alprazolam [Xanax] 2 mg PO TID PRN 09/28/16 [History] Cyclobenzaprine [Flexeril] 10 mg PO TID PRN 09/28/16 [History] Dicyclomine [Bentyl] 20 mg PO TID PRN 09/28/16 [History] Ergocalciferol (VITAMIN D2) [Vitamin D2] 50,000 unit PO QWEEK 09/28/16 [History] Lisinopril [Zestril] 40 mg PO DAILY 09/28/16 [History] Metoprolol XL (24 HR) Succ [Toprol XL] 50 mg PO DAILY 09/28/16 [History] Omeprazole [PriLOSEC] 20 mg PO BIDAC 09/28/16 [History] Ondansetron ODT [Zofran ODT] 4 - 8 mg SL Q6H PRN 09/28/16 [History] Zolpidem [Ambien] 10 mg PO HS PRN 09/28/16 [History] Docusate [Colace] 100 mg PO BID PRN #30 capsule 09/29/16 [Rx] OxyCODONE/APAP 10/325 [Percocet 10/325 MG] 1 each PO Q6HR PRN #30 tablet [Rx] Allergies Sulfa (Sulfonamide Antibiotics) Allergy (Verified 01/11/16 00:54) Vomiting Bnezght-Taf-Mvx Reductase Inhibitor [Statins] Adverse Reaction (Verified 00:54) Muscle Pain - Meds/Allergy Pre-op Review Medications Reviewed: Yes Allergies Reviewed: Yes Beta Blockers on Current Med List: Yes If Beta Blockers taken, Date/Time (Last Dose taken): 09/28/2016 @ 21:37 Anesthesia Results - Labs 09/29/16 05:47 09/29/16 05:47 - Imaging EKG: image reviewed (SR) Anesthesia Exam O2 Sat Weight 124.012 kg O2 Sat by Pulse Oximetry 96 O2 Sat by Pulse Oximetry 94 O2 Sat by Pulse Oximetry 94 O2 Sat by Pulse Oximetry 97 O2 Sat by Pulse Oximetry 96 O2 Sat by Pulse Oximetry 96 O2 Sat by Pulse Oximetry 96 Vital Signs Temp Pulse Resp BP Pulse Ox 98.2 F 95 18 173/122 96 09/28/16 12:43 09/28/16 12:43 09/28/16 12:43 09/28/16 12:43 09/28/16 12:43 Vital Signs/O2 Sat, Most Current Temp Pulse Resp BP Pulse Ox 97.9 F 54 16 146/86 96 09/29/16 11:49 09/29/16 11:49 09/29/16 11:49 09/29/16 11:49 09/29/16 11:49 - HEENT Pupil (Motor): Pupils equal, EOMI Mallampati: III Teeth: Normal Oral Opening: Greater than 3 - STEAMBOAT PILOT LOC: Oriented STEAMBOAT PILOT Motor: Normal RUE, Normal LUE, Normal RLE, Normal LLE, Normal Face STEAMBOAT PILOT Sensory: Normal: RUE, LUE, RLE, LLE, Face - Cardiac Rhythm: Regular Murmur: None JVD: No Carotid Bruit: No - Pulmonary Breath Sounds: bilateral Clear Respiratory Effort: Symmetrical Anesthesia Assess/Plan ASA Score: 3 Modified Nnamdi Scale for Level of Consciousness: Cooperative, oriented, and tranquil Anesthetic Plan: General Autologous Blood: Yes Monitoring Plan: Standard Monitors Recovery Plan: PACU
[2016-09-29] MEDS ORDERED: CefOXitin 2,000 MG VIAL IVPB ONE (14:04)
[2016-09-29] MEDS ORDERED: *HR* HYDROmorphone 2 MG/ML SYRINGE ONE (14:30)
[2016-09-29] MEDS ORDERED: Neostigmine Methylsulfate 3 MG/3 ML SYRINGE ONE (14:44)
--- NOTE | 2016-09-29 14:48 | Operative Note ---
Date of procedure: 09/29/16 Pre-op diagnosis: biliary dyskinesia Post-op diagnosis: same Procedure: Laparoscopic Cholecystectomy with cholangiogram Anesthesia: NICOLE Surgeon: Kevin Jiang Estimated blood loss (cc): 5 Specimen: GB Procedure in Detail: After informed consent this patient was taken the operating room placed supine position. After adequate sedation anesthesia the abdomen was prepped and draped. A proper timeout was performed. Two towel clamps are placed at the umbilicus and a Veres needle was inserted into the abdomen. A 5 mm incision was made at the umbilicus. A 12 mm incision was made in the subxiphoid region. Two 5 mm incisions were made in the right upper quadrant that were 4 finger breadths and 6 finger breadths below the costal margin. The gallbladder was identified, retracted anteriorly and cephalad, and the infundibulum was skeletonized. The cystic duct was easily identified and was dissected free. A ductotomy was created in the cystic duct. A taut catheter was placed within the cystic duct and clipped. A cholangiogram was performed. Contrast filled the cystic duct, common hepatic duct, hepatic radicles, and the distal common bile duct. There was flow of contrast into the duodenum. Once this was confirmed the clippers removed, the taut catheter was removed as well, and the cystic duct was clipped distally. The cystic duct was then transected with scissors. The gallbladder was resected off the liver surface. There was excellent hemostasis. The gallbladder was then retrieved through the 12 mm cannula site. At this point the abdomen was suctioned dry and the pneumoperitoneum was then evacuated. All ports were removed. The 12 mm cannula site was closed with an 0 Vicryl suture in [id number] fashion. The skin was closed with 4-0 Vicryl suture. Dermabond was placed as well. All instrument counts and needle counts are correct in the operation. She tolerated the procedure well and was transferred to the PACU in stable condition.
[2016-09-29] MEDS ORDERED: *HR* Promethazine 25 MG/ML VIAL ONE (15:00)
[2016-09-29] MEDS ORDERED: *HR* HYDROmorphone (PF) 1 MG/ML SYRINGE ONE (15:00)
[2016-09-29] MEDS: *HR* HYDROmorphone (PF) 1 MG/ML SYRINGE IVP PRN ×4 (15:01→15:30)
[2016-09-29] MEDS: *HR* Promethazine 25 MG/ML VIAL IVP PRN ×2 (15:03→15:22)
[2016-09-29] MEDS ORDERED: Albuterol 2.5 MG/3 ML NEBULIZER IH ONE (15:06)
--- NOTE | 2016-09-29 15:28 | Discharge Summary ---
Date of Encounter: 09/29/16 Time of Encounter: 15:26 - Discharge Diagnosis (1) Biliary colic Priority: Primary Status: Resolved - Discharge Medications Prescriptions: OxyCODONE/APAP 10/325 [Percocet 10/325 MG] 1 each PO Q6HR PRN #30 tablet PRN Reason: Pain Docusate [Colace] 100 mg PO BID PRN #30 capsule PRN Reason: Constipation Home Medications: Alprazolam [Xanax] 2 mg PO TID PRN 09/28/16 [History] Cyclobenzaprine [Flexeril] 10 mg PO TID PRN 09/28/16 [History] Dicyclomine [Bentyl] 20 mg PO TID PRN 09/28/16 [History] Ergocalciferol (VITAMIN D2) [Vitamin D2] 50,000 unit PO QWEEK 09/28/16 [History] Lisinopril [Zestril] 40 mg PO DAILY 09/28/16 [History] Metoprolol XL (24 HR) Succ [Toprol XL] 50 mg PO DAILY 09/28/16 [History] Omeprazole [PriLOSEC] 20 mg PO BIDAC 09/28/16 [History] Ondansetron ODT [Zofran ODT] 4 - 8 mg SL Q6H PRN 09/28/16 [History] Zolpidem [Ambien] 10 mg PO HS PRN 09/28/16 [History] Docusate [Colace] 100 mg PO BID PRN #30 capsule 09/29/16 [Rx] OxyCODONE/APAP 10/325 [Percocet 10/325 MG] 1 each PO Q6HR PRN #30 tablet [Rx] Allergies/Adverse Reactions: Allergies Sulfa (Sulfonamide Antibiotics) Allergy (Verified 01/11/16 00:54) Vomiting Osaiwfi-Edf-Vtq Reductase Inhibitor [Statins] Adverse Reaction (Verified 00:54) Muscle Pain General Surgery Exam Initial Vital Signs Temp Pulse Resp BP Pulse Ox 98.2 F 95 18 173/122 96 09/28/16 12:43 09/28/16 12:43 09/28/16 12:43 09/28/16 12:43 09/28/16 12:43 Date of admission: 09/28/16 16:49 Primary care physician: Luther Starks MD Discharging clinician: Kevin Jiagn (Annabel Sheth) Anticipated date of discharge: 09/29/16 - Patient Status Disposition: Home, Self-Care Condition: Good Functional capacity at discharge: independent ambulation - Discharge Instructions Follow Up With: Linh Sheth CNP [Advanced Practice Nurse] - 10/12/16 9:45 am (surgery follow-up) Luther Starks MD [Primary Care Provider] - 10/06/16 3:00 pm (1 week hospital follow-up) Additional Instructions: Surgical instructions: #1 May shower,09/30/16, no tub bath X 2 weeks #2 Wash incisions with soap and water and pat dry daily #3 No lifting/pushing/pulling greater than 15 lb. for a total of 2 weeks from the date of surgery #4 No driving until off narcotics for 24 hours and able to safely react in the car #5 May climb stairs #6 May advance to regular diet as tolerated (cautious with fatty foods- may cause urgency/diarrhea) May return to work 10/09/16 with no restrictions - Diet and Activity Activity: other (See additional instructions above) Diet: advance to your usual diet - Hospital Course Hospital course: Mr. Rivera is a 55 year old male presented to the hospital with a 3 weeks history of RUQ abdominal pain. He was taken to the operating room for a laparoscopic cholecystectomy with Dr. Jiang for recurrent biliary colic. We will begin discharge planning to home when meets discharge criteria including: tolerating liquids without nausea/vomiting, pain is well controlled, voiding and ambulating without difficulty, vitals are stable and afebrile. - Time Spent with Patient Total time spent providing and/or coordinating discharge services: Less than 30 minutes Labs on day of discharge: Labs from last 24 hours 09/29/16 09/29/16 09/29/16 10:18 08:06 07:30 WBC RBC Hgb Hct MCV MCH MCHC RDW Plt Count MPV Immature Gran % Seg Neutrophils % Lymphocytes % Monocytes % Eosinophils % Basophils % Neutrophils # Lymphocytes # Monocytes # Eosinophils # Basophils # ESR Sodium Potassium Chloride Carbon Dioxide BUN Creatinine Est GFR ( Amer) Est GFR (Non-Af Amer) BUN/Creatinine Ratio Glucose POC Glucose 90 H Est Mean Plasma Glucose Hemoglobin A1c Calculated Osmolality Lactic Acid Calcium Phosphorus Magnesium Total Bilirubin AST ALT Alkaline Phosphatase C-Reactive Protein Serum Total Protein Albumin Globulin Albumin/Globulin Ratio Triglycerides Cholesterol LDL Cholesterol, Calc VLDL Cholesterol, Calc HDL Cholesterol Cholesterol/HDL Ratio Carcinoembryonic Ag 2.3 Urine Opiates Screen Positive H Ur Barbiturates Screen Negative Ur Phencyclidine Scrn Negative Ur Amphetamines Screen Negative U Benzodiazepines Scrn Positive H Urine Cocaine Screen Negative U Marijuana (THC) Screen Positive H Hepatitis A IgM Ab Hep Bs Antigen Hep B Core IgM Ab Hepatitis C Ab Screen 09/29/16 09/29/16 09/28/16 05:47 05:47 21:34 WBC 7.6 RBC 4.87 Hgb 14.7 D Hct 43.2 MCV 88.7 MCH 30.2 MCHC 34.0 RDW 12.2 Plt Count 175 MPV 9.8 Immature Gran % 0.5 Seg Neutrophils % 43.8 Lymphocytes % 43.4 Monocytes % 8.1 Eosinophils % 3.4 Basophils % 0.8 Neutrophils # 3.3 Lymphocytes # 3.3 Monocytes # 0.6 Eosinophils # 0.3 Basophils # 0.1 ESR Sodium 140 Potassium 4.1 Chloride 110 H Carbon Dioxide 23 BUN 12 Creatinine 0.90 Est GFR ( Amer) > 60 Est GFR (Non-Af Amer) > 60 BUN/Creatinine Ratio 13 Glucose 81 POC Glucose Est Mean Plasma Glucose Hemoglobin A1c Calculated Osmolality 289 Lactic Acid Calcium 8.8 Phosphorus 3.4 Magnesium 1.9 Total Bilirubin 0.8 AST 22 ALT 24 Alkaline Phosphatase 54 C-Reactive Protein Serum Total Protein 6.1 D Albumin 3.3 L D Globulin 2.8 Albumin/Globulin Ratio 1.2 Triglycerides 108 Cholesterol 149 LDL Cholesterol, Calc 101 H VLDL Cholesterol, Calc 22 HDL Cholesterol 26 L Cholesterol/HDL Ratio 5.7 H Carcinoembryonic Ag Urine Opiates Screen Ur Barbiturates Screen Ur Phencyclidine Scrn Ur Amphetamines Screen U Benzodiazepines Scrn Urine Cocaine Screen U Marijuana (THC) Screen Hepatitis A IgM Ab Nonreactive Hep Bs Antigen Nonreactive Hep B Core IgM Ab Nonreactive Hepatitis C Ab Screen Nonreactive 09/28/16 09/28/16 09/28/16 21:34 21:34 21:34 WBC RBC Hgb Hct MCV MCH MCHC RDW Plt Count MPV Immature Gran % Seg Neutrophils % Lymphocytes % Monocytes % Eosinophils % Basophils % Neutrophils # Lymphocytes # Monocytes # Eosinophils # Basophils # ESR Sodium Potassium Chloride Carbon Dioxide BUN Creatinine Est GFR ( Amer) Est GFR (Non-Af Amer) BUN/Creatinine Ratio Glucose POC Glucose Est Mean Plasma Glucose 108 Hemoglobin A1c 5.4 Calculated Osmolality Lactic Acid 0.6 Calcium Phosphorus Magnesium Total Bilirubin AST ALT Alkaline Phosphatase C-Reactive Protein 1 Serum Total Protein Albumin Globulin Albumin/Globulin Ratio Triglycerides Cholesterol LDL Cholesterol, Calc VLDL Cholesterol, Calc HDL Cholesterol Cholesterol/HDL Ratio Carcinoembryonic Ag Urine Opiates Screen Ur Barbiturates Screen Ur Phencyclidine Scrn Ur Amphetamines Screen U Benzodiazepines Scrn Urine Cocaine Screen U Marijuana (THC) Screen Hepatitis A IgM Ab Hep Bs Antigen Hep B Core IgM Ab Hepatitis C Ab Screen 09/28/16 21:34 WBC RBC Hgb Hct MCV MCH MCHC RDW Plt Count MPV Immature Gran % Seg Neutrophils % Lymphocytes % Monocytes % Eosinophils % Basophils % Neutrophils # Lymphocytes # Monocytes # Eosinophils # Basophils # ESR 5 Sodium Potassium Chloride Carbon Dioxide BUN Creatinine Est GFR ( Amer) Est GFR (Non-Af Amer) BUN/Creatinine Ratio Glucose POC Glucose Est Mean Plasma Glucose Hemoglobin A1c Calculated Osmolality Lactic Acid Calcium Phosphorus Magnesium Total Bilirubin AST ALT Alkaline Phosphatase C-Reactive Protein Serum Total Protein Albumin Globulin Albumin/Globulin Ratio Triglycerides Cholesterol LDL Cholesterol, Calc VLDL Cholesterol, Calc HDL Cholesterol Cholesterol/HDL Ratio Carcinoembryonic Ag Urine Opiates Screen Ur Barbiturates Screen Ur Phencyclidine Scrn Ur Amphetamines Screen U Benzodiazepines Scrn Urine Cocaine Screen U Marijuana (THC) Screen Hepatitis A IgM Ab Hep Bs Antigen Hep B Core IgM Ab Hepatitis C Ab Screen - Impressions ITS Impressions Cholangiogram,Operative 09/29/16 00:00 IMPRESSION: Unremarkable intraoperative cholangiogram. Please see the intraoperative note for complete details. D/ / Anshu James MD / Anshu James MD Interpreting Provider: Anshu James MD - Attending Attestation I examined this patient and my medical decision-making was reviewed with the [employer] BR[employer] ASSEMBLER/PA/Advanced Practice Nurse/Resident Physician. I agree with the documented findings, disposition and treatment plan as described except to the extent set forth below.
--- NOTE | 2016-09-29 15:45 | Anesthesia Evaluation Post Op ---
Date of Encounter: 09/29/16 Time of Encounter: 15:44 - Vital Signs Vital Signs: Vital Signs/O2 Sat, Most Current Temp Pulse Resp BP Pulse Ox 97.5 F L 61 16 155/83 96 09/29/16 15:35 09/29/16 15:35 09/29/16 15:35 09/29/16 15:35 09/29/16 15:35 - Lungs Lungs: Clear Ascult./Percussion - Airway Airway: Non-obstructed - Cardiovascular Regular Rate - Mental Status Mental Status: Alert & Oriented, Answers Appropriately - Pain Pain Scale: 0 Pain Scale used: Numeric (1 - 10) - Nausea Vomiting Nausea Vomiting: Not Present - Hydration Hydration: Ice chips, Has not voided - Discharge PostOp Status: Transfer Patient to floor
[2016-09-29] MEDS ORDERED: Naloxone 0.4 MG/ML INJ IVP PRN (15:59)
[2016-09-29] MEDS ORDERED: Ondansetron 4 MG/2 ML VIAL IVP PRN (15:59)
--- NOTE | 2016-09-29 16:18 | Internal Med Progress Note ---
Date of Encounter: 09/29/16 Time of Encounter: 15:30 - Assessment and plan (1) Biliary colic Current Visit: Yes Status: Resolved Assessment and plan: s/p cholecystectomy surgical consultation appreciated discharge as per surgery (2) Intractable abdominal pain Current Visit: Yes Status: Resolved (3) Hypertension Current Visit: Yes Status: Chronic Assessment and plan: BP acceptable range continue home medications Qualifiers: Hypertension type: essential hypertension Qualified Code(s): I10 - Essential (primary) hypertension - Subjective Interval history: Patient seen and examined at bedside. Pt s/p cholecystectomy, reports of post- op pain but denies any other n/v or other discomfort at this time. - Constitutional Vitals: Temp Pulse Resp BP Pulse Ox 97.5 F L 61 16 155/83 96 09/29/16 15:35 09/29/16 15:35 09/29/16 15:35 09/29/16 15:35 09/29/16 15:35 General appearance: Present: A&O X 3, morbidly obese, no acute distress, answers questions appropriately - Head Head exam: Present: atraumatic, normocephalic - Respiratory Respiratory exam: Present: CTAB. Absent: respiratory distress, wheezes - Cardiovascular Cardiovascular exam: Present: RRR, +S1, +S2. Absent: diastolic murmur, gallop, rubs, systolic murmur - GI/Abdominal GI/Abdominal exam: Present: normal bowel sounds, soft, no peritoneal signs. Absent: distended, tenderness - Extremities Exam Extremities exam: Present: warm, radial pulses palpable and symetrical. Absent : calf tenderness - Neurological Exam Neurological exam: Present: alert, oriented X3 - Psychiatric Psychiatric exam: Present: normal affect, normal mood Internal Medicine: Result - Labs CBC & Chem 7: 09/29/16 05:47 09/29/16 05:47 Labs: Short CBC 09/29/16 Range/Units 05:47 WBC 7.6 (4.3-11.1) K/mcL Hgb 14.7 D (12.9-16.9) g/dL Hct 43.2 (37.5-50.1) % Plt Count 175 (140-400) K/mcL Neutrophils # 3.3 (1.6-8.9) K/mcL BMP 09/29/16 05:47 Sodium 140 Potassium 4.1 Chloride 110 H Carbon Dioxide 23 BUN 12 Creatinine 0.90 Glucose 81 Calcium 8.8 Liver Function 09/29/16 Range/Units 05:47 Total Bilirubin 0.8 (0.2-1.2) mg/dL AST 22 (5-34) Units/L ALT 24 (0-55) Units/L Alkaline Phosphatase 54 (38-126) Units/L Albumin 3.3 L D (3.5-5.0) g/dL - ABG Interpretation ABG results: PT/INR, D-dimer PT 12.5 Seconds (9.4-12.1) H 09/28/16 13:27 - Impressions Impressions Cholangiogram,Operative 09/29/16 00:00 IMPRESSION: Unremarkable intraoperative cholangiogram. Please see the intraoperative note for complete details. D/ / Anshu James MD / Anshu James MD Interpreting Provider: Anshu James MD Consult Discharge Plan - Plan Additional Instructions: Surgical instructions: #1 May shower,09/30/16, no tub bath X 2 weeks #2 Wash incisions with soap and water and pat dry daily #3 No lifting/pushing/pulling greater than 15 lb. for a total of 2 weeks from the date of surgery #4 No driving until off narcotics for 24 hours and able to safely react in the car #5 May climb stairs #6 May advance to regular diet as tolerated (cautious with fatty foods- may cause urgency/diarrhea) May return to work 10/09/16 with no restrictions Referrals: Luther Starks MD [Primary Care Provider] - 10/06/16 3:00 pm (1 week hospital follow-up) Linh Sheth CNP [Advanced Practice Nurse] - 10/12/16 9:45 am (surgery follow-up) Prescriptions: OxyCODONE/APAP 10/325 [Percocet 10/325 MG] 1 each PO Q6HR PRN #30 tablet PRN Reason: Pain Docusate [Colace] 100 mg PO BID PRN #30 capsule PRN Reason: Constipation
[2016-09-29] MEDS: *HR* OxyCODONE Immed Rel 5 MG TABLET PO PRN (16:26)
[2016-09-29] MEDS: ALPRAZolam 1 MG TABLET PO PRN (16:32)
[2016-09-29] MEDS ORDERED: Melatonin 3 MG TABLET PO SCH ×2 (21:00)
[2016-09-30] MEDS: Ringers Solution, Lactated 1,000 ML IVC SCH (00:27)
[2016-09-30] MEDS: ALPRAZolam 1 MG TABLET PO PRN ×2 (00:28→08:30)
[2016-09-30] MEDS: *HR* OxyCODONE Immed Rel 5 MG TABLET PO PRN ×2 (00:28→06:16)
[2016-09-30 07:32] VITALS: BP 119/69
[2016-09-30] MEDS: Lisinopril 20 MG TABLET PO SCH (08:30)
[2016-09-30] MEDS: Pantoprazole 40 MG VIAL IVP SCH (08:30)
[2016-09-30] MEDS: Metoprolol XL (24 HR) Succ 50 MG TAB.ER.24H PO SCH (08:31)
--- NOTE | 2016-09-30 08:37 | Internal Med Progress Note ---
Date of Encounter: 09/30/16 Time of Encounter: 08:35 - Assessment and plan (1) Biliary colic Current Visit: Yes Status: Resolved Assessment and plan: s/p cholecystectomy-POD #1 surgical consultation appreciated discharge as per surgery (2) Intractable abdominal pain Current Visit: Yes Status: Resolved (3) Hypertension Current Visit: Yes Status: Chronic Assessment and plan: BP acceptable range continue home medications Qualifiers: Hypertension type: essential hypertension Qualified Code(s): I10 - Essential (primary) hypertension - Subjective Interval history: Patient seen and examined at bedside. POD #1 Laproscopic Cholecystectomy. Patient tolerated the procedure well. Reports of feeling significantly better. Tolerating PO intake well. Discharge instructions provided by surgery. Patient to be discharged to home today. - Constitutional Vitals: Temp Pulse Resp BP Pulse Ox 97.9 F 60 16 119/69 96 09/30/16 07:27 09/30/16 07:27 09/30/16 07:27 09/30/16 07:27 09/30/16 07:27 General appearance: Present: A&O X 3, morbidly obese, no acute distress, answers questions appropriately - Head Head exam: Present: atraumatic, normocephalic - Eye Eye exam: Present: normal appearance, conjuntiva pink, sclera anicteric - Respiratory Respiratory exam: Present: CTAB. Absent: accessory muscle use, rales, rhonchi, wheezes - Cardiovascular Cardiovascular exam: Present: RRR, +S1, +S2. Absent: diastolic murmur, gallop, rubs, systolic murmur - GI/Abdominal GI/Abdominal exam: Present: normal bowel sounds, soft, no peritoneal signs. Absent: distended, tenderness - Extremities Exam Extremities exam: Present: warm, radial pulses palpable and symetrical. Absent : calf tenderness, cyanotic, pedal edema - Neurological Exam Neurological exam: Present: alert, oriented X3 - Psychiatric Psychiatric exam: Present: normal affect, normal mood Internal Medicine: Result - Labs CBC & Chem 7: 09/29/16 05:47 09/29/16 05:47 Labs: BMP 09/29/16 05:47 Sodium 140 Potassium 4.1 Chloride 110 H Carbon Dioxide 23 BUN 12 Creatinine 0.90 Glucose 81 Calcium 8.8 Liver Function 09/29/16 Range/Units 05:47 Total Bilirubin 0.8 (0.2-1.2) mg/dL AST 22 (5-34) Units/L ALT 24 (0-55) Units/L Alkaline Phosphatase 54 (38-126) Units/L Albumin 3.3 L D (3.5-5.0) g/dL - ABG Interpretation ABG results: PT/INR, D-dimer PT 12.5 Seconds (9.4-12.1) H 09/28/16 13:27 - Impressions Impressions Cholangiogram,Operative 09/29/16 00:00 IMPRESSION: Unremarkable intraoperative cholangiogram. Please see the intraoperative note for complete details. D/ / Anshu James MD / Anshu James MD Interpreting Provider: Anshu James MD Consult Discharge Plan - Plan Instructions: Oxycodone/Acetaminophen (By mouth), Laxative, Stool Softeners ( By mouth), Laparoscopic Cholecystectomy (DC) Additional Instructions: Surgical instructions: #1 May shower,09/30/16, no tub bath X 2 weeks #2 Wash incisions with soap and water and pat dry daily #3 No lifting/pushing/pulling greater than 15 lb. for a total of 2 weeks from the date of surgery #4 No driving until off narcotics for 24 hours and able to safely react in the car #5 May climb stairs #6 May advance to regular diet as tolerated (cautious with fatty foods- may cause urgency/diarrhea) May return to work 10/09/16 with no restrictions Referrals: Luther Starks MD [Primary Care Provider] - 10/06/16 3:00 pm (1 week hospital follow-up) Linh Sheth CNP [Advanced Practice Nurse] - 10/12/16 9:45 am (surgery follow-up) Prescriptions: OxyCODONE/APAP 10/325 [Percocet 10/325 MG] 1 each PO Q6HR PRN #30 tablet PRN Reason: Pain Docusate [Colace] 100 mg PO BID PRN #30 capsule PRN Reason: Constipation
[2016-09-30] MEDS ORDERED: Metoprolol XL (24 HR) Succ 50 MG TAB.ER.24H PO SCH (09:00)
[2016-09-30] MEDS ORDERED: Pantoprazole 40 MG VIAL IVP SCH (09:00)
[2016-09-30] MEDS ORDERED: Lisinopril 20 MG TABLET PO SCH (09:00)
== END 2016-09-30 09:29 | disposition home or self-care (01) | DRG 419 ==
LOC: 3BNU 12:42 → EMEROO 12:42 → SUATTDRO 16:49 → 3BNU 17:39
PROVIDERS: ADMIT Internal Medicine; ATTEND Internal Medicine

== ENCOUNTER 2019-05-22 11:22 | Observation (INO) ==
[2019-05-22] MEDS ORDERED: Isovue-370 500 ML BOTTLE IVP ONE (11:45)
[2019-05-22] MEDS ORDERED: 0.9 % Sodium Chloride 1,000 ML IVC ONE (12:03)
[2019-05-22] MEDS ORDERED: Ondansetron 4 MG/2 ML VIAL IVP ONE ×2 (12:04→15:38)
[2019-05-22] MEDS ORDERED: *HR* HYDROmorphone (PF) 1 MG/ML SYRINGE IVP STA (12:06)
[2019-05-22 12:09] LABS: Hematocrit 53.5 % (37.5-50.1); Hemoglobin 19.4 g/dL (12.9-16.9); Mean Corpuscular HGB Conc 36.3 g/dL (31.6-35.5); Mean Corpuscular Hemoglobin 30.5 pg (28.0-33.3); Mean Platelet Volume 9.6 fL (9.4-12.4); Platelet Count 331 K/mcL (140-400); Red Blood Count 6.37 M/mcL (4.19-5.50); Red Cell Distribution Width 12.3 % (11.5-14.5); White Blood Count 12.4 K/mcL (4.3-11.1)
[2019-05-22 12:27] LABS: Alanine Aminotransferase 20 Units/L (7-52); Albumin 4.5 g/dL (3.5-5.7); Albumin/Globulin Ratio 1.3 (1.1-2.2); Alkaline Phosphatase 78 Units/L (34-104); Aspartate Amino Transferase 20 Units/L (13-39); BUN/Creatinine Ratio 16 (6-26); Bilirubin,Direct 0.1 mg/dL (0.0-0.2); Bilirubin,Total 1.1 mg/dL (0.3-1.0); Blood Urea Nitrogen 18 mg/dL (8-23); Calcium 10.3 mg/dL (8.6-10.3); Carbon Dioxide 19 mEq/L (23-29); Chloride 103 mEq/L (98-107); Globulin 3.4 g/dL (2.4-3.5); Glucose 131 mg/dL (70-105); Lipase 35 Units/L (11-82); Osmolality,Calculated 282 (280-300); Potassium 4.3 mEq/L (3.5-5.1); Sodium 134 mEq/L (136-145); Total Protein 7.9 g/dL (6.4-8.9); eGFR For African Americans > 60 (> 60); eGFR For Non-African Americans > 60 (> 60)
[2019-05-22 12:29] LABS: Troponin I < 0.03 ng/mL (< 0.04)
[2019-05-22] MEDS ORDERED: cefTRIAXone 2,000 MG in 0.9 % Sodium Chloride Mini Bag 100 ML IVPB ONE (14:13)
[2019-05-22] MEDS ORDERED: Azithromycin 500 MG in D5% in Water 250 ML IVPB ONE (14:13)
[2019-05-22] MEDS ORDERED: Ketorolac 15 MG/ML VIAL IVP ONE (15:38)
[2019-05-22] MEDS ORDERED: Hyoscyamine SL 0.125 MG TAB.SUBL SL ONE (16:00)
[2019-05-22] MEDS ORDERED: Pantoprazole 40 MG VIAL IVP ONE (16:02)
[2019-05-22 16:11] LABS: Bilirubin,Urine Negative (Negative); Blood,Urine Negative (Negative); Clarity,Urine Clear (Clear); Color,Urine Yellow (Yellow); Glucose,Urine (UA) Normal (Normal); Ketones,Urine 40 mg/dL (Negative); Leukocyte Esterase,Urine Negative (Negative); Nitrite,Urine Negative (Negative); Protein,Urine Negative (Neg-Trace); Specific Gravity,Urine > 1.030 (1.010-1.025); Urobilinogen,Urine Normal (Normal)
[2019-05-22] MEDS ORDERED: Naloxone 0.4 MG/ML INJ IVP PRN (16:51)
[2019-05-22] MEDS ORDERED: Acetaminophen 325 MG TABLET PO PRN (17:03)
[2019-05-22] MEDS ORDERED: *HR* OxyCODONE Immed Rel 5 MG TABLET PO PRN (17:03)
[2019-05-22] MEDS ORDERED: *HR* HYDROcodone/Acet 5/325 mg TABLET PO PRN (17:03)
[2019-05-22] MEDS ORDERED: GI Cocktail 40 ML EACH PO ONE (17:41)
[2019-05-22] MEDS: Ringers Solution, Lactated 1,000 ML IVC SCH (18:40)
[2019-05-22] MEDS: Pantoprazole 40 MG VIAL IVP SCH (18:41)
[2019-05-22] MEDS: *HR* OxyCODONE/APAP 10/325 TABLET PO PRN (21:58)
[2019-05-22] MEDS: ALPRAZolam 1 MG TABLET PO PRN (21:58)
[2019-05-22 23:34] LABS: Adenovirus Not Detected (Not Detect); Bordetella Pertussis Not Detected (Not Detect); Chlamydophila pneumoniae Not Detected (Not Detect); Coronavirus 229E Not Detected (Not Detect); Coronavirus HKU1 Not Detected (Not Detect); Coronavirus NL63 Not Detected (Not Detect); Coronavirus OC43 Not Detected (Not Detect); Human Metapneumovirus Not Detected (Not Detect); Human Rhinovirus/Enterovirus Not Detected (Not Detect); Influenza A Subtype 2009 H1 Not Detected (Not Detect); Influenza A Untypeable Not Detected (Not Detect); Influenza B Not Detected (Not Detect); Mycoplasma pneumoniae Not Detected (Not Detect); Parainfluenza Virus 1 Not Detected (Not Detect); Parainfluenza Virus 2 Not Detected (Not Detect); Parainfluenza Virus 3 Not Detected (Not Detect); Parainfluenza Virus 4 Not Detected (Not Detect); Respiratory Syncytial Virus Not Detected (Not Detect)
[2019-05-23] MEDS: Ringers Solution, Lactated 1,000 ML IVC SCH ×3 (04:55→21:42)
[2019-05-23] MEDS: Pantoprazole 40 MG VIAL IVP SCH ×2 (04:56→17:43)
[2019-05-23 07:06] LABS: Basophils % 0.3 %; Eosinophils # 0.1 K/mcL (0.0-0.6); Eosinophils % 1.1 %; Hematocrit 46.7 % (37.5-50.1); Immature Granulocytes % 0.5 % (0-4); Lymphocytes # 3.8 K/mcL (0.6-4.6); Lymphocytes % 29.5 %; Mean Corpuscular HGB Conc 34.3 g/dL (31.6-35.5); Mean Corpuscular Hemoglobin 30.7 pg (28.0-33.3); Mean Corpuscular Volume 89.5 fL (83.0-100.0); Monocytes # 1.1 K/mcL (0.0-1.3); Monocytes % 8.4 %; Neutrophils # 7.8 K/mcL (1.6-8.9); Platelet Count 256 K/mcL (140-400); Red Blood Count 5.22 M/mcL (4.19-5.50); Red Cell Distribution Width 12.3 % (11.5-14.5); Segmented Neutrophils % 60.2 %; White Blood Count 12.9 K/mcL (4.3-11.1)
[2019-05-23 07:20] LABS: BUN/Creatinine Ratio 15 (6-26); Blood Urea Nitrogen 16 mg/dL (8-23); Calcium 9.2 mg/dL (8.6-10.3); Carbon Dioxide 24 mEq/L (23-29); Chloride 101 mEq/L (98-107); Glucose 92 mg/dL (70-105); Osmolality,Calculated 283 (280-300); Sodium 136 mEq/L (136-145); eGFR For African Americans > 60 (> 60); eGFR For Non-African Americans > 60 (> 60)
[2019-05-23] MEDS: Metoprolol XL (24 HR) Succ 50 MG TAB.ER.24H PO SCH (08:22)
[2019-05-23] MEDS: cefTRIAXone 1,000 MG in Water for inj. (sterile) 10 ML IVP SCH (08:22)
[2019-05-23] MEDS: Azithromycin 500 MG in 0.9 % Sodium Chloride 250 ML IVPB SCH (08:23)
[2019-05-23] MEDS: *HR* OxyCODONE/APAP 10/325 TABLET PO PRN ×3 (08:37→20:35)
[2019-05-23] MEDS: ALPRAZolam 1 MG TABLET PO PRN ×2 (08:38→18:40)
[2019-05-23] MEDS ORDERED: Lisinopril 20 MG TABLET PO SCH (09:00)
[2019-05-23 11:02] LABS: INR 1.2; Prothrombin Time 13.5 Seconds (9.4-12.1)
[2019-05-23] MEDS: Ipratropium/Albuterol Neb 3 ML IH SCH ×2 (17:04→22:15)
[2019-05-24 03:45] LABS: Basophils # 0.1 K/mcL (0.0-0.2); Basophils % 0.6 %; Eosinophils # 0.2 K/mcL (0.0-0.6); Eosinophils % 2.5 %; Hematocrit 45.2 % (37.5-50.1); Hemoglobin 15.1 g/dL (12.9-16.9); Immature Granulocytes % 0.5 % (0-4); Lymphocytes # 3.2 K/mcL (0.6-4.6); Lymphocytes % 33.1 %; Mean Corpuscular HGB Conc 33.4 g/dL (31.6-35.5); Mean Corpuscular Hemoglobin 30.3 pg (28.0-33.3); Mean Corpuscular Volume 90.8 fL (83.0-100.0); Mean Platelet Volume 9.7 fL (9.4-12.4); Monocytes # 0.9 K/mcL (0.0-1.3); Monocytes % 9.2 %; Neutrophils # 5.2 K/mcL (1.6-8.9); Platelet Count 197 K/mcL (140-400); Red Blood Count 4.98 M/mcL (4.19-5.50); Red Cell Distribution Width 12.4 % (11.5-14.5); Segmented Neutrophils % 54.1 %; White Blood Count 9.6 K/mcL (4.3-11.1)
[2019-05-24 03:51] LABS: BUN/Creatinine Ratio 11 (6-26); Blood Urea Nitrogen 11 mg/dL (8-23); Carbon Dioxide 27 mEq/L (23-29); Chloride 103 mEq/L (98-107); Glucose 83 mg/dL (70-105); Osmolality,Calculated 283 (280-300); Potassium 3.9 mEq/L (3.5-5.1); Sodium 137 mEq/L (136-145); eGFR For African Americans > 60 (> 60); eGFR For Non-African Americans > 60 (> 60)
[2019-05-24] MEDS: Ipratropium/Albuterol Neb 3 ML IH SCH ×4 (04:19→22:25)
[2019-05-24] MEDS: Pantoprazole 40 MG VIAL IVP SCH ×2 (06:37→19:47)
[2019-05-24] MEDS: ALPRAZolam 1 MG TABLET PO PRN ×3 (06:37→21:49)
[2019-05-24] MEDS: *HR* OxyCODONE/APAP 10/325 TABLET PO PRN ×3 (06:37→21:49)
[2019-05-24] MEDS: Metoprolol XL (24 HR) Succ 50 MG TAB.ER.24H PO SCH (09:18)
[2019-05-24] MEDS: cefTRIAXone 1,000 MG in Water for inj. (sterile) 10 ML IVP SCH (09:18)
[2019-05-24] MEDS: Lisinopril 20 MG TABLET PO SCH (09:18)
[2019-05-24] MEDS: Azithromycin 500 MG in 0.9 % Sodium Chloride 250 ML IVPB SCH (09:18)
[2019-05-24] MEDS ORDERED: *HR* Propofol 200 MG/20 ML VIAL IVP ONE ×2 (18:29)
[2019-05-25] MEDS: Ipratropium/Albuterol Neb 3 ML IH SCH ×2 (03:58→10:00)
[2019-05-25] MEDS: ALPRAZolam 1 MG TABLET PO PRN (05:58)
[2019-05-25] MEDS: Pantoprazole 40 MG VIAL IVP SCH (05:58)
[2019-05-25] MEDS: *HR* OxyCODONE/APAP 10/325 TABLET PO PRN (05:58)
[2019-05-25 07:36] VITALS: BP 104/67
[2019-05-25] MEDS: Lisinopril 20 MG TABLET PO SCH (08:40)
[2019-05-25] MEDS: cefTRIAXone 1,000 MG in Water for inj. (sterile) 10 ML IVP SCH (08:40)
[2019-05-25] MEDS: Azithromycin 500 MG in 0.9 % Sodium Chloride 250 ML IVPB SCH (08:40)
[2019-05-25] MEDS: Metoprolol XL (24 HR) Succ 50 MG TAB.ER.24H PO SCH (08:40)
[2019-05-25 11:11] LABS: Hematocrit 45.4 % (37.5-50.1); Hemoglobin 15.9 g/dL (12.9-16.9); Mean Corpuscular Hemoglobin 30.9 pg (28.0-33.3); Mean Corpuscular Volume 88.2 fL (83.0-100.0); Mean Platelet Volume 9.4 fL (9.4-12.4); Platelet Count 211 K/mcL (140-400); Red Blood Count 5.15 M/mcL (4.19-5.50); Red Cell Distribution Width 12.2 % (11.5-14.5); White Blood Count 7.6 K/mcL (4.3-11.1)
[2019-05-25 11:31] LABS: BUN/Creatinine Ratio 12 (6-26); Blood Urea Nitrogen 14 mg/dL (8-23); Calcium 9.4 mg/dL (8.6-10.3); Carbon Dioxide 26 mEq/L (23-29); Chloride 105 mEq/L (98-107); Glucose 105 mg/dL (70-105); Osmolality,Calculated 289 (280-300); Potassium 3.8 mEq/L (3.5-5.1); Sodium 139 mEq/L (136-145); eGFR For African Americans > 60 (> 60); eGFR For Non-African Americans > 60 (> 60)
[2019-05-26] MEDS ORDERED: Azithromycin 250 MG TABLET PO SCH (09:00)
[2019-05-27 11:06] LABS: Mycoplasma pneumoniae IgG 0.2 U/L (<=0.09)
== END 2019-05-25 12:12 | disposition home or self-care (01) ==
LOC: EMEROOARM 11:22 → 3BNU 11:22 → SUATTDRO 15:09 → 3BNU 17:10
PROVIDERS: ADMIT Internal Medicine; ATTEND Family Medicine